=== PATIENT | male | born 1935 | race Hispanic/Latino ===

== ENCOUNTER 2017-09-22 21:30 | Emergency (ER) | payer MEDICARE ==
[~2017-09-22] VITALS: Ht 165.1 cm; Wt 61.2 kg
[~2017-09-22 21:30] MED LIST: AMLODIPINE BESY10 MG PO; LISINOPRIL; LISINOPRIL20 MG PO; METRONIDAZOLE500 MG PO; SUCRALFATE1 GM PO; WARFARIN SODIUM2 MG PO; XARELTO15 MG PO; Z.0.BENTYL20 MG; Z.0.LOTREL 5-20 MG1 PO; Z.0.PANTOPRAZOLE SO4 PO; Z.0.PHENERGAN25 M1
--- NOTE | 2017-09-22 22:16 | Diagnostic Imaging Report ---
EXAM: CHEST 2 VIEWS, PA and lateral DATE: 09/22/2017 9:43 PM Time stamp on exam: 2201 hours INDICATION: High blood pressure, cough COMPARISON: None FINDINGS: LINES/TUBES: None LUNGS: No consolidations or edema. PLEURA: No effusions or pneumothorax. HEART AND MEDIASTINUM: Normal size and contour. BONES AND SOFT TISSUES: No acute findings. IMPRESSION: No evidence of a consolidative pneumonia. Signed by: Dr. Shamika Perdomo M.D. on 09/22/2017 10:13 PM
[2017-09-22 23:25] VITALS: BP 162/89
== END 2017-09-22 23:30 | disposition home or self-care (01) ==
LOC: ER 21:30
DX: J30.2 Other seasonal allergic rhinitis (principal); I10 Essential (primary) hypertension; J44.9 Chronic obstructive pulmonary disease, unspecified; Z85.46 Personal history of malignant neoplasm of prostate
CPT/HCPCS: 71020; 87400; 99283

== ENCOUNTER 2018-02-15 14:14 | Emergency (ER) | payer MEDICARE ==
[~2018-02-15] VITALS: Ht 165.1 cm; Wt 61.2 kg
--- OUTSIDE RECORDS SUMMARY | 2018-02-15 14:18 | XMS REPORT ---
[facility] Address Unknown Phone Unavailable Care Team Providers Care Collections Agent Name Role Phone SOLEDAD BHATT Unavailable Unavailable Problems This patient has no known problems. Allergies, Adverse Reactions, Alerts This patient has no known allergies or adverse reactions. Medications This patient has no known medications. Results Test Description Test Time Test Comments Text Results Atomic Results Result Comments CHEST 2 VIEWS [place] [address] Patient Name: NARGIS ARGUELLES MR #: [id number] : 1935 Age/Sex: 81/M Req # : [id number] Adm Physician: Ordered by: SOLEDAD BHATT MD Report # : [id number] Location: ER Room/Bed: Procedure: [id number] DX/CHEST 2 VIEWS Exam Date: 09/22/17 Exam Time : 2156 REPORT STATUS: Signed EXAM: CHEST 2 VIEWS, PA and lateral DATE : 09/22/2017 9:43 PM Time stamp on exam: 2201 hours INDICATION: High blood pressure, cough COMPARISON: None FINDINGS: LINES/TUBES: None LUNGS : No consolidations or edema. PLEURA: No effusions or pneumothorax. HEART AND MEDIASTINUM: Normal size and contour. BONES AND SOFT TISSUES: No acute findings. IMPRESSION: No evidence of a consolidative pneumonia. Signed by: Dr. Jakub Lassiter M.D. on 09/22/2017 10:13 PM Dictated By: JAKUB LASSITER MD 12 COPY TO: SOLEDAD BHATT MD
[2018-02-15] MEDS ORDERED: METHYLPREDNISOLONE SOD SUCC 125 MG/2ML VIAL IM ONE (14:45)
== END 2018-02-15 14:46 | disposition home or self-care (01) ==
LOC: FSED 14:14
DX: B02.9 Zoster without complications (principal)
CPT/HCPCS: 99283; J2930

== ENCOUNTER 2018-07-05 11:17 | Emergency (ER) | payer MEDICARE ==
[~2018-07-05] VITALS: Ht 165.1 cm; Wt 61.2 kg
[2018-07-05] MEDS ORDERED: DEXAMETHASONE SOD PHOS 10 MG/1 ML VIAL INJ ONE (12:00)
[2018-07-05] MEDS ORDERED: ALBUTEROL/IPRATROPIUM 3 ML NEB NEB ONE (12:00)
--- NOTE | 2018-07-05 12:30 | Diagnostic Imaging Report ---
EXAMINATION: PA and lateral views of the chest. COMPARISON: Chest 2 views 09/22/2017 CLINICAL HISTORY: Wheezing, cough for one day DISCUSSION: Lines/tubes: None. Lungs: The lungs are well inflated and clear. There is no evidence of pneumonia or pulmonary edema. Pleura: There is no pleural effusion or pneumothorax. Heart and mediastinum: Cardiomediastinal silhouette is unremarkable. Pulmonary vasculature is normal. Bones and soft tissues: No acute bony abnormalities. Degenerative changes in the thoracic spine IMPRESSION: No acute cardiopulmonary abnormalities. Signed by: Dr. Edwin Bello M.D. on 07/05/2018 12:26 PM
== END 2018-07-05 13:03 | disposition home or self-care (01) ==
LOC: FSED 11:17
DX: R06.00 Dyspnea, unspecified (principal); R05 Cough; J20.9 Acute bronchitis, unspecified; I10 Essential (primary) hypertension; E78.00 Pure hypercholesterolemia, unspecified
CPT/HCPCS: 71046; 99284; J1100

== ENCOUNTER → 2018-09-20 | Day surgery (SDC) | payer MEDICARE ==
[2018-09-17 15:23] LABS: BASOPHILS % 0.5 % (0.0-1.0); EOSINOPHILS # (AUTO) 0.1 (0.0-0.4); EOSINOPHILS % 1.4 % (0.0-6.0); HEMATOCRIT 39.5 % (38.2-49.6); LYMPHOCYTES # (AUTO) 1.1 (1.0-3.2); LYMPHOCYTES % 16.3 % (18.0-39.1); MEAN CORPUSCULAR HEMOGLOBIN 29.9 pg (28-32); MEAN CORPUSCULAR HGB CONC 32.9 g/dL (31-35); MEAN CORPUSCULAR VOLUME 90.8 fL (81-99); MONOCYTES # (AUTO) 0.6 (0.2-0.8); MONOCYTES % 8.9 % (4.4-11.3); NEUTROPHILS # (AUTO) 4.8 (2.1-6.9); NEUTROPHILS % 71.8 % (38.7-80.0); PLATELET COUNT 187 x10e3/uL (140-360); RED BLOOD COUNT 4.35 x10e6/uL (4.3-5.7); RED CELL DISTRIBUTION WIDTH 12.5 % (11.7-14.4)
[~2018-09-20] MED LIST changes: +ADVAIR 250-501 EACH INH; +AMOXICILLIN250 MG PO; +ASPIR 8181 MG; +GABAPENTIN300 MG PO; +LASIX20 MG PO; +LIDOCAINE HCL 2% LOCAL INJ 5 ML SDV VIAL INJ ONE; +LOSARTAN POTAS100 MG PO; +MONTELUKAST SOD10 MG PO; +PROAIR HFA INH8.5 GM INH; +PROPOFOL IV EMULSION 10 MG/ML 50 ML VIAL ONE; +TERAZOSIN HCL1 MG PO
--- NOTE | 2018-09-20 15:15 | Operative Report ---
DATE OF PROCEDURE: September 20, 2018 REFERRING PHYSICIAN: Dr. Daija Otto. PROCEDURE PERFORMED: Esophagogastroduodenoscopy with esophageal dilatation and biopsies. INDICATION FOR EGD: Dysphagia to solids, bloating. MEDICATIONS: Patient was done under MAC. Please see anesthesiologist's note. PROCEDURE: With the patient in left lateral decubitus position, the flexible fiberoptic Olympus gastroscope was introduced into the esophagus under direct visualization without any difficulty. There was some patchy erythema noted in the distal esophagus. The esophagus was then dilated to size 52-[place] Wilson. The scope was then advanced with ease into the stomach and mucosa overlying the antrum and the body revealed some patchy intense erythema and low-grade to moderate edema and biopsies were obtained and sent to stain for H. pylori. Pylorus appeared to be of normal contour and shape, was intubated with ease, and the scope was advanced all the way to the second portion of the duodenum. The scope was then withdrawn slowly and mucosa overlying the proximal second portion and the duodenal bulb appeared to be within normal limits. The scope was then withdrawn back into the stomach and retroflexed, mucosa overlying the fundus and the cardia appeared to be within normal limits. The scope was then straightened out and was subsequently withdrawn. Patient tolerated the procedure well. IMPRESSION 1. Distal esophagitis, mild. 2. Esophagus dilated to size 52-[place] Wilson. 3. Gastritis, biopsied, biopsies sent to stain for Helicobacter pylori. PLAN: Follow up histology. Continue Protonix 40 mg one p.o. a.c. b.i.d.. Add Carafate 1 gram p.o. a.c. t.i.d. and q.h.s. Job#: [id number] PUN cc:DAIJA OTTO MD
== END | disposition home or self-care (01) ==
LOC: OR 08:26
PROVIDERS: ATTEND Internal Medicine Gastroenterology
DX: K21.0 Gastro-esophageal reflux disease with esophagitis (principal); K29.50 Unspecified chronic gastritis without bleeding; R13.10 Dysphagia, unspecified; I10 Essential (primary) hypertension; Z85.46 Personal history of malignant neoplasm of prostate; R19.7 Diarrhea, unspecified; Z88.5 Allergy status to narcotic agent; Z88.0 Allergy status to penicillin; K22.2 Esophageal obstruction; Z01.810 Encounter for preprocedural cardiovascular examination; Z01.812 Encounter for preprocedural laboratory examination
CPT/HCPCS: 36415; 43239; 43450; 85025; 88305; 88312; 93005; J2001

== ENCOUNTER 2018-09-21 13:54 | Inpatient (IN) | payer MEDICARE ==
[2018-09-21] VITALS (11 sets, daily range): BP systolic 82–112; BP diastolic 45–79
[~2018-09-21] VITALS: Ht 165.1 cm; Wt 67.6 kg
[~2018-09-21 13:54] MED LIST changes: -AMOXICILLIN250 MG PO; -LIDOCAINE HCL 2% LOCAL INJ 5 ML SDV VIAL INJ ONE; -PROPOFOL IV EMULSION 10 MG/ML 50 ML VIAL ONE
[2018-09-21] MEDS ORDERED: CEFEPIME 2 GM/NS 0.9% 100 ML 100 ML IV NR (14:31)
[2018-09-21] MEDS ORDERED: SODIUM CHLORIDE 0.9% 1000ML 1,000 ML IV STA (14:31)
[2018-09-21] MEDS ORDERED: METRONIDAZOLE 500MG/NS 100ML 100 ML IV ONE (14:45)
[2018-09-21] MEDS ORDERED: DIATRIZOATE MEGL/DIATRIZOA SOD 30 ML BTL PO ONE (15:00)
[2018-09-21 15:17] LABS: BASOPHILS % 0.2 % (0.0-1.0); HEMATOCRIT 37.7 % (38.2-49.6); HEMOGLOBIN 12.9 g/dL (14.0-18.0); LYMPHOCYTES # (AUTO) 0.6 (1.0-3.2); MEAN CORPUSCULAR HEMOGLOBIN 30.3 pg (28-32); MEAN CORPUSCULAR HGB CONC 34.2 g/dL (31-35); MEAN CORPUSCULAR VOLUME 88.5 fL (81-99); MONOCYTES # (AUTO) 1.5 (0.2-0.8); MONOCYTES % 7.8 % (4.4-11.3); NEUTROPHILS # (AUTO) 16.8 (2.1-6.9); NEUTROPHILS % 88.1 % (38.7-80.0); PLATELET COUNT 186 x10e3/uL (140-360); RED BLOOD COUNT 4.26 x10e6/uL (4.3-5.7); RED CELL DISTRIBUTION WIDTH 12.7 % (11.7-14.4)
[2018-09-21 15:29] LABS: INR 1.18
[2018-09-21 15:30] LABS: PARTIAL THROMBOPLASTIN TIME 34.3 seconds (23.8-35.5)
[2018-09-21 15:43] LABS: ALBUMIN 3.2 g/dL (3.5-5.0); ANION GAP 14.4 mmol/L (8-16); CALCIUM 8.7 mg/dL (8.4-10.2); CREATININE, SERUM 1.74 mg/dL (0.72-1.25); MAGNESIUM 1.6 MG/DL (1.3-2.1); POTASSIUM 3.4 mmol/L (3.5-5.1)
[2018-09-21 15:50] LABS: CREATINE KINASE MB 0.5 ng/mL (0-5.0)
[2018-09-21 15:57] LABS: B-TYPE NATRIURETIC PEPTIDE2 157.3 pg/mL (0-100)
[2018-09-21 16:18] LABS: CLARITY,URINE CLEAR (CLEAR); COLOR,URINE YELLOW (YELLOW); KETONES,URINE NEGATIVE (NEGATIVE); LEUKOCYTE ESTERASE ,URINE NEGATIVE (NEGATIVE); NITRITE,URINE NEGATIVE (NEGATIVE); PROTEIN,URINE DIPSTICK NEGATIVE (NEGATIVE); URINE UROBILINOGEN 0.2 mg/dL (0.2 - 1)
[2018-09-21 16:19] LABS: BILIRUBIN,URINE NEGATIVE (NEGATIVE)
--- NOTE | 2018-09-21 16:31 | Diagnostic Imaging Report ---
Examination: Single AP view of the chest. COMPARISON: Chest 2 views 09/22/2017 INDICATION: Fever, status post EGD dilation IMPRESSION: 1. Lines and Tubes: None 2. Lungs are grossly clear. No consolidation or effusion. 3. Cardiomediastinal silhouette is normal. Pulmonary vasculature is normal. 4. No acute bony abnormalities. Signed by: Dr. Edwin Bello M.D. on 09/21/2018 4:27 PM
[2018-09-21 16:35] LABS: BACTERIA,URINE RARE /HPF; EPITHELIAL CELLS,URINE RARE /LPF; RBC,URINE 0-5 /HPF (0-5); WBC,URINE (MAN) 0-5 /HPF (0-5)
--- NOTE | 2018-09-21 16:40 | Diagnostic Imaging Report ---
EXAMINATION: CT of the abdomen and pelvis without contrast. TECHNIQUE: Spiral CT images of the abdomen and pelvis were performed from the lung bases to the lesser trochanters. No intravenous contrast was given per physician's request. Oral Gastrografin was given. Coronal and sagittal reformatted images were obtained. COMPARISON: None. CLINICAL HISTORY:EGD one day ago, fever today, abdominal bloating DISCUSSION: ABSENCE OF INTRAVENOUS CONTRAST DECREASES SENSITIVITY FOR DETECTION OF FOCAL LESIONS AND VASCULAR PATHOLOGY. ABDOMEN/PELVIS: LOWER THORAX: Unremarkable. No pneumomediastinum in the visualized portions of the lung bases HEPATOBILIARY: Normal hepatic size and contour. Mild steatosis predominantly involving the right lobe. No focal lesions. No intrahepatic biliary ductal dilation. Mild dilation of the common bile duct, which measures approximately 8 mm at the ivonne hepatis. GALLBLADDER: Cholecystectomy clips. SPLEEN: No splenomegaly. PANCREAS: No focal masses or ductal dilatation. ADRENALS: No adrenal nodules. KIDNEYS/URETERS: No hydronephrosis, stones, or contour abnormalities. Malrotation of the right kidney. PELVIC ORGANS/BLADDER: Bladder is mostly decompressed but grossly unremarkable. Metallic clips are noted inferior and posterior to the bladder. PERITONEUM/RETROPERITONEUM: No free air or fluid. LYMPH NODES: No intra-abdominal,retroperitoneal, pelvic or inguinal lymphadenopathy. VESSELS: Atherosclerotic calcification of the abdominal aorta and proximal iliac vessels. GI TRACT: Contrast is noted predominantly in the jejunum and ileum. No bowel dilation or evidence of obstruction. No pericolonic inflammatory changes. High riding cecum. BONES AND SOFT TISSUES: No aggressive lytic lesions. Mild degenerative disc changes in the lower thoracic and lumbosacral spine. Soft tissues are grossly unremarkable. IMPRESSION: 1. No acute abdominopelvic abnormalities. No evidence of pneumomediastinum in the visualized portions of the lung bases. No pneumoperitoneum. No evidence of bowel perforation. 2. Mild hepatic steatosis predominantly involving the right hepatic lobe. 3. Mild dilation of the common bile duct, likely reflecting post cholecystectomy status. Signed by: Dr. Edwin Bello M.D. on 09/21/2018 4:36 PM
[2018-09-21 17:25] LABS: AMYLASE 58 U/L (25-125); LIPASE 11 U/L (8-78)
[2018-09-21] MEDS ORDERED: ALBUTEROL SULF 0.083% NEB SOLN 3 ML NEB NEB NR (18:00)
[2018-09-21] MEDS ORDERED: IPRATROPIUM BROMIDE 0.02% 2.5 ML NEB NEB NR (18:00)
[2018-09-21] MEDS: CLINDAMYCIN PHOS 900MG/ 50ML 50 ML IV SCH ×2 (18:18→22:00)
[2018-09-21] MEDS: ACETAMINOPHEN 1000 MG/100 ML IV PRN (18:19)
[2018-09-21] MEDS ORDERED: ONDANSETRON HCL INJ 2MG/ML 2ML 2 MG/ML VIAL IV PRN (18:30)
[2018-09-21] MEDS ORDERED: KCL 20MEQ/.9 SOD CHL 1,000 ML IV ONE ×2 (18:30→22:18)
[2018-09-21] MEDS ORDERED: SODIUM CHLORIDE 0.9% 1000ML 1,000 ML IV ONE ×2 (18:43→19:07)
--- NOTE | 2018-09-21 18:43 | NUR ---
NOTIFIED DR MCGRATH BP 81/42. 1L NS BOLUS ORDERED THIS TIME.
[2018-09-21] MEDS ORDERED: SODIUM CHLORIDE 0.9% 1000ML 1,000 ML ONE ×2 (18:44→19:08)
--- NOTE | 2018-09-21 18:55 | NUR ---
VERBAL REPORT GIVEN TO QUEENIE GURROLA.
--- NOTE | 2018-09-21 19:07 | NUR ---
NOTIFIED DR MCGRATH BP 84/49 AFTER 1L NS BOLUS. 1L NS BOLUS ORDERED AT THIS TIME.
--- NOTE | 2018-09-21 19:10 | NUR ---
RECEIVED REPORT FROM QUEENIE GONZALEZ
--- NOTE | 2018-09-21 19:22 | NUR ---
PICC NURSE AT BEDSIDE
[2018-09-21] MEDS ORDERED: VANCOMYCIN 1GM/NS 250 ML 250 ML IV ONE (19:30)
[2018-09-21] MEDS ORDERED: NOREPINEPHRINE INJ 4MG/4ML 8 MG in DEXTROSE 5% 250ML 250 ML IV PRN (19:30)
--- NOTE | 2018-09-21 19:35 | NUR ---
RADIOLOGY AT BEDSIDE FOR CXR LINE PLACEMENT
--- NOTE | 2018-09-21 19:37 | NUR ---
60CC CLEAR YELLOW RETURN FROM [facility], 3RD 1L NS BOLUS INFUSED. PT AWAKE ALERT SKIN W/D RESP NONLAB. NAD NOTED.
--- NOTE | 2018-09-21 20:02 | Diagnostic Imaging Report ---
CHEST XRAY LINE PLACEMENT, 09/21/2018 7:16 PM Technique: CHEST XRAY LINE PLACEMENT Comparison: 09/21/2018 Clinical history: PICC line placement Findings: See Impression Impression: 1. Lines/Tubes: Right PICC seen over the proximal SVC, tip obscured by motion and confluence of shadow. 2. Mildly enlarged cardiac silhouette, accentuated by technique. Atherosclerotic calcifications. 3. Mild infrahilar vascular crowding. No effusion or pneumothorax. Signed by: Dr Do Costa MD on 09/21/2018 7:58 PM
--- NOTE | 2018-09-21 20:05 | Diagnostic Imaging Report ---
CHEST XRAY LINE PLACEMENT, 09/21/2018 7:49 PM Technique: CHEST XRAY LINE PLACEMENT Comparison: 09/21/2018 Clinical history: Findings: See Impression Impression: 1. Lines/Tubes: Right PICC tip within the expected proximal SVC. 2. Prominent cardiac silhouette, accentuated by lordotic portable technique. Atherosclerotic calcifications. 3. Linear left midlung atelectasis. No consolidations or edema. No effusion or pneumothorax. Signed by: Dr Do Costa MD on 09/21/2018 8:02 PM
[2018-09-21] MEDS: CEFEPIME 2 GM/NS 0.9% 100 ML 100 ML IV SCH (22:18)
[2018-09-22] VITALS (26 sets, daily range): BP systolic 84–139; BP diastolic 54–87
--- NOTE | 2018-09-22 00:28 | NUR ---
CALLED DR Fabian REY TO INFORM HIM THAT THIS PATIENT HAS SEVERAL LARGE LIQUID STOOLS. C-DIFF SENT OFF. ORDER FOR FECAL MANAGEMENT SYSTEM, AND ORDER FOR LOMOTIL X1 DOSE. VERB AND CONFIRMED
[2018-09-22] MEDS: ALBUTEROL SULF 0.083% NEB SOLN 3 ML NEB NEB PRN ×5 (01:45→23:12)
[2018-09-22] MEDS: IPRATROPIUM BROMIDE 0.02% 2.5 ML NEB NEB PRN ×5 (01:45→23:12)
[2018-09-22] MEDS ORDERED: DIPHENOXYLATE/ATROPINE TAB PO ONE (03:00)
[2018-09-22 03:15] LABS: BASOPHILS % 0.1 % (0.0-1.0); HEMATOCRIT 31.3 % (38.2-49.6); HEMOGLOBIN 10.3 g/dL (14.0-18.0); LYMPHOCYTES % 6.4 % (18.0-39.1); MEAN CORPUSCULAR HEMOGLOBIN 29.3 pg (28-32); MEAN CORPUSCULAR HGB CONC 32.9 g/dL (31-35); MEAN CORPUSCULAR VOLUME 89.2 fL (81-99); MONOCYTES # (AUTO) 1.2 (0.2-0.8); MONOCYTES % 8.2 % (4.4-11.3); NEUTROPHILS # (AUTO) 12.5 (2.1-6.9); NEUTROPHILS % 84.4 % (38.7-80.0); PLATELET COUNT 114 x10e3/uL (140-360); RED BLOOD COUNT 3.51 x10e6/uL (4.3-5.7); RED CELL DISTRIBUTION WIDTH 12.9 % (11.7-14.4)
[2018-09-22 03:36] LABS: CREATINE KINASE MB 2.5 ng/mL (0-5.0)
[2018-09-22 03:43] LABS: ANION GAP 12.5 mmol/L (8-16); CALCIUM 7.3 mg/dL (8.4-10.2); CREATININE, SERUM 1.52 mg/dL (0.72-1.25); POTASSIUM 3.5 mmol/L (3.5-5.1)
[2018-09-22] MEDS: CLINDAMYCIN PHOS 900MG/ 50ML 50 ML IV SCH ×4 (05:04→22:59)
--- NOTE | 2018-09-22 07:00 | NUR ---
RECVD BEDSIDE REPORT. ASSESSMENT COMPLETED AND RECORDED. VSS AND RECORDED. DENIES PAIN. REVIEWED IN [facility] POC WITH PT AND THEY VERBALIZE UNDERSTANDING AND CONSENT.
--- NOTE | 2018-09-22 07:33 | NUR ---
CALLED DR Alla REY TO UPDATE ON STATUS AND REQUEST SOMETHING FOR COUGH. ORDERS RECVD AND BEING COMPLETED.
[2018-09-22] MEDS: CEFEPIME 2 GM/NS 0.9% 100 ML 100 ML IV SCH ×2 (08:20→22:00)
[2018-09-22 11:44] LABS: CREATINE KINASE MB 2.1 ng/mL (0-5.0)
--- NOTE | 2018-09-22 12:42 | NUR ---
Nutrition Intervention Note RD Recommendation(s) for Physician: - If pt is negative for C. Diff consider probiotics BID 2/2 diarrhea - Recommend Ensure Compact TID Plan of Care: RD following, monitoring for tolerance and adequacy Nutrition reason for involvement: RN Consult RD Assessment 09/22: 82 YOM admitted to ICU for renal insufficiency and fever with diarrhea and pending C. diff culture. Pt seen today per RN consult- no reason specified. Pt is Danish speaking only, pt's at bedside able to provide limited hx. Pt's reports poor po intake recently. Pt wt stable per prior admit in February. Pt continues with diarrhea per am rounds. Chart reviewed. Pt now off Levophed. Will continue to monitor. Principal Problems/Diagnoses: Renal insufficiency, fever, strep pharyngitis PMH: dysphagia, PUD, melena- limited PMH per previous admits, no H&P this admit GI: LBM 09/22- diarrhea Skin: intact Labs: Na 138, K 3.5, BUN 24, Cr 1.52, POC Gluc 191-196 Meds: abx, zofran Ht: 65 in Wt: 146 lb BMI: 24.4 IBW: 136 lb Malnutrition Evaluation (09/22/18) The patient does not meet criteria for a specified degree of malnutrition at this time. Will re-evaluate at follow-up as appropriate. Energy intake: <75% of estimated energy requirements for >7 days Weight loss: Wt stable > 6 months per admit wt of 165# 6/ Fat loss: None Muscle loss: None Supporting Evidence: Fluid accumulation: None Functional Status: unable to evaluate Nutrition Prescription (Diet Order): Cardiac Estimated Nutritional Needs: 7700-6647 calories/day (22-28 kcal/kg CBW) 66-100 g protein/day (1-1.5 g pro/kg CBW) Diet Adequacy: Not meeting calorie needs, Not meeting protein needs Diet Education Needs Assessment: Diet education not indicated. Nutrition Care Level: Low Nutrition Diagnosis: Inadequate energy and protein intake related to poor appetite and diarrhea as evidenced by not meeting needs. Goal: Patient will meet 75-100% of estimated needs by follow up Progress: N/A Interventions: Fat, mineral modified diet, Commercial beverage, Prescription medications, Collaboration with other providers Monitoring/Evaluation: Total energy intake, Total protein intake, Modified diet, Commercial beverage Signed: Zunilda Leung RD, LD, [facility]
[2018-09-22] MEDS: ACETAMINOPHEN 1000 MG/100 ML IV PRN (15:08)
--- NOTE | 2018-09-22 16:33 | NUR ---
DR REY MAKING ROUNDS, UPDATED ON PT STATUS. NO NEW ORDERS RECVD.
--- NOTE | 2018-09-22 17:00 | NUR ---
CASE MANAGEMENT INITIAL ASSESSMENT Division Operations Specialist to bedside to discuss plan of care with patient/family. CM/SW role and care transitions discussed. Anticipated discharge plan discussed along with duration of care. CM/SW discussed patients right to make decisions in care. CM/SW work hours given. Patient lives: WITH AND DTR SHANNAN Admit/Transfer: ER POA/Emergency contact: DAUGHTER SHANNAN ARGUELLES [phone] Current/Previous Home Health: NONE PCP/Follow-up Care: DR DAIJA ALEXANDRE Current/Previous DME: [employer]ER Other Services: NONE Employment Status: RETIRED Areas of Concerns: NONE Referral Needs: NONE Education Needs: NONE IMM/BLANCAS given and signed (if applicable): IMM ON ADMIT Goal for discharge:RETURN HOME AND BE INDEPENDENT CM/SW left business card at the bedside with contact information. Name and number was also written on the patients whiteboard. Patient verbalized understanding of discussion. CM will follow-up with ongoing discharge and transition of care needs.
--- NOTE | 2018-09-22 20:30 | NUR ---
PATIENT TRANSPORTED TO RADIOLOGY VIA W/C WITH MONITOR
--- NOTE | 2018-09-22 20:30 | NUR ---
PATIENTs COMPLAINING OF PAIN IN MID ABDOMEN RADIATING TO THE RUQ, PATIENT ABDOMEN STILL GROSSLY DIST ENDED. PREVIOUS SHIFT HE HAD 3 COPIOUS AMTS OF WATERY STOOL AND 1 A PASTY STOOL. CALLED DR Candy REY NEW ORDER TO GET A 2 VIEW ABDOMEN. I ASKED HIM IF I COULD GET AN ORDER FOR A CXR PATIENT HAVING SOB AND CRACKLES WITH WHEEZING HEARD PATIENT ON RA AND SATS AT 98%. CXR 2 VIEW ORDERED.
--- NOTE | 2018-09-22 21:00 | NUR ---
PATIENT STILL HAVING MILD SOB AUDIBLE WHEEZING NOW BEING HEARD. RR 20 O2 SATS 90% PATIENT IS USING ACCESSORY ABD MUSCLES. PLACED O2 NC AT 1L/M AND SATS CAME UP TO 99%. WILL CONTINUE TO MONITOR Addendum: 09/22/18 at 2321 by Ely Oliva RN PATIENT BACK FROM RADIOLOGY AND PLACED BACK IN BED WHEN ASKED STATEMENT ABOVE
--- NOTE | 2018-09-22 21:02 | Diagnostic Imaging Report ---
EXAMINATION: PA and lateral views of the chest. COMPARISON: AP chest 09/21/2018 CLINICAL HISTORY: Fever, dyspnea, renal insufficiency DISCUSSION: Lines/tubes: Stable right-sided PICC line, with distal tip projecting in the proximal to mid SVC. Lungs: Lungs are well-inflated. Stable linear opacity in the left midlung, likely reflecting subsegmental atelectasis or scarring. Mild compressive atelectasis in bilateral lower lungs. Pleura: Blunting of bilateral posterior costophrenic sulci, consistent with small pleural effusions. Heart and mediastinum: Cardiomediastinal silhouette is unremarkable. Pulmonary vasculature is normal. Bones and soft tissues: No acute bony abnormalities. Degenerative changes in the thoracic spine IMPRESSION: Small bilateral pleural effusions with likely compressive atelectasis of bilateral lower lobes. Signed by: Dr. Edwin Bello M.D. on 09/22/2018 8:59 PM
--- NOTE | 2018-09-22 21:05 | Diagnostic Imaging Report ---
Exam: Abdominal film Clinical History: Abdominal distention Comparison: CT abdomen and pelvis without contrast 09/21/2018 DISCUSSION: Frontal view of the abdomen shows a nonobstructive bowel gas pattern with no significant amount of retained stool. A single loop of small bowel is mildly dilated measuring 3.4 cm in the right midabdomen. No other air filled, nondilated loops of bowel. There are no abnormal calcifications. Residual contrast is noted in the large bowel from prior CT abdomen and pelvis. Multiple metallic clips project in the pelvis. IMPRESSION: 1. Single air-filled loop of small bowel shows mild dilation, however, the rest of the bowel is unremarkable, without other air filled dilated loops of bowel. This is likely transient and result of peristalsis rather than a focal ileus. The staff physician below has personally reviewed this exam on the date of dictation. Signed by: Dr. Edwin Bello M.D. on 09/22/2018 9:02 PM
--- NOTE | 2018-09-22 21:10 | NUR ---
RESULTS BACK AND CALL DR Candy REY. ORDER TO GIVE DUCOLAX SUPP X1 IF NO RESULTS AND/OR PAIN LEVEL IS NOT DECREASED TO CALL HIM BACK
[2018-09-22] MEDS ORDERED: BISACODYL 10 MG SUPP PR ONE (22:00)
[2018-09-22] MEDS: GUAIFENESIN/DEXTROMETHORPHAN LIQD 5 ML UDC NG PRN (22:00)
--- NOTE | 2018-09-22 23:00 | NUR ---
PATIENTs O2 SATS AT 99% AND IS O2 AT 1/M BUT AUDIBLE WHEEZING STILL NOTED THAT DOES NOT CLEAR WITH COUGH. PATIENTs STATED "A LITTLE SOB". CALLED AND HAD DR REY PAGED OUT
--- NOTE | 2018-09-22 23:21 | NUR ---
DR Rafita REY RETURNED PAGE. INFORMED HIM C/O SOB, AND WHEEZING IS NOW AUDIBLE AND STILL HAS RHONCHI IN BILATERAL UPPER LOBES AND RIGHT MEDIAL LOBE, BILATERAL LOWER LOBES DIMINISHED. THAT Candy REY GAVE ME ORDER FOR ABD XRAY ORDER WHEN GIVING THE KUB ORDER. RESULTS WERE PLACED. VITAL SIGNS WITH NOW O2 NC AT 1-2L/M. NEW ORDER RECEIVED TO GIVE LASIX 40MG IV NOW X1 DOSE
[2018-09-22] MEDS ORDERED: FUROSEMIDE INJ 10 MG/ML 4 ML VIAL IV ONE (23:30)
[2018-09-23] VITALS (15 sets, daily range): BP systolic 101–146; BP diastolic 65–81
--- NOTE | 2018-09-23 03:00 | NUR ---
PATIENT WAS GIVEN A ONE TIME DOSE OF LASIX 40MG IV AT 2330. PATIENT HAS NO C/O SOB. AUSCULTATION TO LUNG AARON WERE CLEAR. NO WHEEZING, CRACKLES, NOR STRIDOR HEARD. DRASTIC IMPROVEMENT AFTER THE LASIX GIVEN.
[2018-09-23] MEDS: CLINDAMYCIN PHOS 900MG/ 50ML 50 ML IV SCH ×3 (06:32→23:00)
--- NOTE | 2018-09-23 07:00 | NUR ---
RECVD BEDSIDE REPORT. ASSESSMENT COMPLETED AND RECORDED. VSS. DR Fabian REY AT BEDSIDE. NO NEW ORDERS RECVD. PT AND VERBALIZE UNDERSTANDING AND CONSENT TO POC EXPLAINED TO THEM IN [facility].
[2018-09-23] MEDS: IPRATROPIUM BROMIDE 0.02% 2.5 ML NEB NEB PRN ×2 (07:05→20:01)
[2018-09-23] MEDS: ALBUTEROL SULF 0.083% NEB SOLN 3 ML NEB NEB PRN ×2 (07:05→20:01)
[2018-09-23] MEDS: CEFEPIME 2 GM/NS 0.9% 100 ML 100 ML IV SCH ×2 (07:20→20:15)
[2018-09-23] MEDS ORDERED: FUROSEMIDE INJ 10 MG/ML 4 ML VIAL IV ONE (10:45)
[2018-09-23 10:53] LABS: BASOPHILS % 0.3 % (0.0-1.0); EOSINOPHILS % 0.2 % (0.0-6.0); HEMATOCRIT 33.5 % (38.2-49.6); HEMOGLOBIN 11.1 g/dL (14.0-18.0); LYMPHOCYTES # (AUTO) 0.4 (1.0-3.2); LYMPHOCYTES % 3.9 % (18.0-39.1); MEAN CORPUSCULAR HEMOGLOBIN 29.3 pg (28-32); MEAN CORPUSCULAR HGB CONC 33.1 g/dL (31-35); MEAN CORPUSCULAR VOLUME 88.4 fL (81-99); MONOCYTES # (AUTO) 0.7 (0.2-0.8); NEUTROPHILS # (AUTO) 10.1 (2.1-6.9); NEUTROPHILS % 88.9 % (38.7-80.0); PLATELET COUNT 123 x10e3/uL (140-360); RED BLOOD COUNT 3.79 x10e6/uL (4.3-5.7)
--- NOTE | 2018-09-23 11:00 | NUR ---
dr bose making rounds, updated orders are being completed.
[2018-09-23 11:18] LABS: ANION GAP 11.3 mmol/L (8-16); CALCIUM 8.2 mg/dL (8.4-10.2); CREATININE, SERUM 1.44 mg/dL (0.72-1.25); POTASSIUM 3.3 mmol/L (3.5-5.1)
--- NOTE | 2018-09-23 11:19 | Diagnostic Imaging Report ---
Examination: Single AP view of the chest. COMPARISON: 09/22/2018 INDICATION: Shortness of breath DISCUSSION: Tip of right upper extremity PICC projects over the low superior vena cava, unchanged. Lungs remain well-inflated. Small bilateral pleural effusions with linear opacities in the lower lung zones left greater than right, unchanged. No new consolidation. Stable cardiomediastinal contour with tortuosity and atherosclerotic calcification of the thoracic aorta. No overt pulmonary edema. No acute osseous abnormality. IMPRESSION: Stable position of right upper extremity PICC. Small bilateral pleural effusions and subsegmental atelectasis of the lower lung zones, left greater than right, unchanged relative to 09/22/2018. Signed by: Dr. Morgan Goodwin M.D. on 09/23/2018 11:16 AM
--- NOTE | 2018-09-23 12:05 | NUR ---
report called to yohana, transferred pt via wc with family at bedside. tolerates well.
--- NOTE | 2018-09-23 12:30 | NUR ---
PT ARRIVED TO FLOOR VIA STRETCHER, RESP EVEN AND UNLABORED AT THIS TIME, PT ORIENTED TO ROOM AND CALL LIGHT, PT HAS FAMILY MEMBERS AT BEDSIDE, CALL LIGHT IN REACH.
[2018-09-23] MEDS: GUAIFENESIN/DEXTROMETHORPHAN LIQD 5 ML UDC NG PRN (17:19)
[2018-09-23] MEDS ORDERED: SODIUM CHLORIDE 0.9% 250ML 250 ML ONE (17:31)
--- NOTE | 2018-09-23 19:25 | NUR ---
Completed bedside rounds with morning nurse. Pt alert to name, lying in bed 45 degrees. Denies pain at this time. Family at bedside. No distress noted.
--- NOTE | 2018-09-23 19:32 | NUR ---
REPORT GIVEN TO ONCOMING NURSE, FOR CONTINUED CARE.
--- NOTE | 2018-09-23 19:53 | NUR ---
Called RT to admin prn breathing treatments. Pt with dry coughing and SOB. O2 sat 95%. VS stable. elevated HOB 75 degrees.
--- NOTE | 2018-09-23 20:23 | NUR ---
Breathing treatment received. Pt denies SOB. Decreased coughing. Lungs CTA. Lying in bed HOB 60. Denies pain or discomfort. Family at bedside. Call garcía within reach. Will continue to monitor.
[2018-09-24 00:05] VITALS: BP 138/70
[2018-09-24] MEDS ORDERED: PANTOPRAZOLE 40 MG 10ML VIAL IV STA (01:14)
[2018-09-24] MEDS: PANTOPRAZOLE 40 MG 10ML VIAL IV SCH ×2 (01:15→13:58)
[2018-09-24] MEDS: IPRATROPIUM BROMIDE 0.02% 2.5 ML NEB NEB PRN ×3 (01:19→13:25)
[2018-09-24] MEDS: ALBUTEROL SULF 0.083% NEB SOLN 3 ML NEB NEB PRN ×3 (01:19→13:25)
[2018-09-24] MEDS ORDERED: SODIUM CHLORIDE 0.9% 50ML 100 ML ONE (01:33)
[2018-09-24 04:00] VITALS: BP 116/62
[2018-09-24] MEDS: CLINDAMYCIN PHOS 900MG/ 50ML 50 ML IV SCH ×2 (06:12→13:58)
[2018-09-24 07:58] VITALS: BP 138/67
[2018-09-24 08:14] VITALS: BP 138/67
[2018-09-24] MEDS: GUAIFENESIN/DEXTROMETHORPHAN LIQD 5 ML UDC NG PRN ×2 (08:14→13:58)
[2018-09-24] MEDS: CEFEPIME 2 GM/NS 0.9% 100 ML 100 ML IV SCH (08:14)
[2018-09-24 11:37] VITALS: BP 108/60
--- NOTE | 2018-09-24 14:08 | NUR ---
PATIENT TRANSFERRED FROM ICU. DR. Fabian REY HAS SEEN PATIENT BUT NO ORDERS PLACED FOR INTERVENTIONS FOR ABDOMINAL PAIN. PATIENT CULTURES NEGATIVE, PATIENT ON CARDIAC DIET AND TOLERATING. DR. Alla REY TO REVIEW AND DETERMINE DISCHARGE PLAN.
[2018-09-24] MEDS ORDERED: AMOXICILLIN250 MG PO (15:43)
--- NOTE | 2018-09-24 16:16 | NUR ---
Paged Dr. Alla Kamara at this time. patient has allergy to penicillin. Amoxicillin written for discharge. Awaiting call back.
[2018-09-24 16:17] VITALS: BP 114/61
--- NOTE | 2018-09-24 17:10 | NUR ---
Paged Dr. bose again. Spoke directly to Dr. Bose at this time. Gave me his cell phone number to text patient information. Stated he will call in another prescription to patient's pharmacy. patient can still be discharged.
== END 2018-09-24 18:54 | disposition home or self-care (01) | DRG 153 ==
LOC: ER 13:54 → OBSVTOIN 18:36 → ERHOLD 18:36 → ICU 19:54 → MED/SURG2 09-23 15:10
PROC: 02HV33Z Insertion of Infusion Device into Superior Vena Cava, Percutaneous Approach (ICD-10-PCS; principal; 2018-09-21)
DX: J02.0 Streptococcal pharyngitis (principal); I10 Essential (primary) hypertension; E78.5 Hyperlipidemia, unspecified; J44.9 Chronic obstructive pulmonary disease, unspecified; I11.0 Hypertensive heart disease with heart failure; I50.9 Heart failure, unspecified
CPT/HCPCS: 36415; 36569; 51700; 71045; 71046; 74018; 74176; 80048; 80053; 81001; 82150; 82550; 82553; 82948; 83518; 83605; 83690; 83735; 83880; 84484; 85025; 85610; 85730; 87040; 87086; 87400; 87493; 93005; 94640; 99284; J1940; J2405; J3370; J7030; J7050

== ENCOUNTER 2020-08-04 10:00 | Emergency (ER) | payer MEDICARE ==
[~2020-08-04] VITALS: Ht 165.1 cm; Wt 66.5 kg
[~2020-08-04 10:00] MED LIST changes: +AMOXICILLIN250 MG PO
[2020-08-04] MEDS ORDERED: PROTONIX20 MG PO (10:21)
[2020-08-04] MEDS ORDERED: SUCRALFATE1 GM PO (10:21)
[2020-08-04] MEDS ORDERED: AMLODIPINE BESYL5 MG PO (10:21)
[2020-08-04] MEDS ORDERED: VITAMIN D3250 MC1 (10:21)
[2020-08-04 11:59] VITALS: BP 154/79
== END 2020-08-04 12:12 | disposition home or self-care (01) ==
LOC: FSED 10:10
DX: J40 Bronchitis, not specified as acute or chronic (principal); R06.02 Shortness of breath; I10 Essential (primary) hypertension; J44.9 Chronic obstructive pulmonary disease, unspecified; K21.9 Gastro-esophageal reflux disease without esophagitis; Z85.46 Personal history of malignant neoplasm of prostate; Z86.718 Personal history of other venous thrombosis and embolism
CPT/HCPCS: 71046; 80053; 82553; 83880; 84484; 85025; 93005; 99284

== ENCOUNTER 2021-09-12 21:26 | Emergency (ER) | payer MEDICARE ==
[~2021-09-12] VITALS: Ht 165.1 cm; Wt 66.2 kg
[~2021-09-12 21:26] MED LIST changes: +AMLODIPINE BESYL5 MG PO; +PROTONIX20 MG PO; +VITAMIN D3250 MC1
[2021-09-12] MEDS ORDERED: DEXAMETHASONE SOD PHOS 10 MG/1 ML VIAL IM STA (21:52)
[2021-09-12] MEDS ORDERED: AZITHROMYCIN 250 MG TAB PO STA (21:52)
[2021-09-12] MEDS ORDERED: DEXAMETHASONE SOD PHOS 10 MG/1 ML VIAL ONE (22:07)
[2021-09-12] MEDS ORDERED: AZITHROMYCIN 250 MG TAB ONE (22:07)
[2021-09-12] MEDS ORDERED: VENTOLIN HFA18 GM INH (23:54)
[2021-09-12] MEDS ORDERED: AZITHROMYCIN250 MG PO (23:54)
[2021-09-12] MEDS ORDERED: PREDNISONE20 MG PO (23:54)
[2021-09-13 01:17] VITALS: BP 141/76
== END 2021-09-12 23:58 | disposition home or self-care (01) ==
LOC: ER 21:34
DX: U07.1 COVID-19 (principal); J44.9 Chronic obstructive pulmonary disease, unspecified; I11.0 Hypertensive heart disease with heart failure; I50.9 Heart failure, unspecified; Z88.6 Allergy status to analgesic agent; Z88.0 Allergy status to penicillin; Z79.899 Other long term (current) drug therapy; Z86.711 Personal history of pulmonary embolism; Z86.718 Personal history of other venous thrombosis and embolism
CPT/HCPCS: 71045; J1100; U0002

== ENCOUNTER 2021-09-15 09:34 | Emergency (ER) | payer MEDICARE ==
[~2021-09-15] VITALS: Ht 165.1 cm; Wt 66.2 kg
[~2021-09-15 09:34] MED LIST changes: +AZITHROMYCIN250 MG PO; +PREDNISONE20 MG PO; +VENTOLIN HFA18 GM INH
== END 2021-09-15 10:02 | disposition home or self-care (01) ==
LOC: ER 09:55
DX: U07.1 COVID-19 (principal); R05.9 Cough, unspecified; I10 Essential (primary) hypertension; J44.9 Chronic obstructive pulmonary disease, unspecified; I50.9 Heart failure, unspecified; K21.9 Gastro-esophageal reflux disease without esophagitis; J45.909 Unspecified asthma, uncomplicated; Z86.718 Personal history of other venous thrombosis and embolism
CPT/HCPCS: 99282

== ENCOUNTER 2021-09-17 12:33 | Inpatient (IN) | payer MEDICARE ==
[~2021-09-17] VITALS: Ht 165.1 cm; Wt 66.4 kg
[2021-09-17] MEDS ORDERED: DEXAMETHASONE SOD PHOS 10 MG/1 ML VIAL IV ONE (13:30)
[2021-09-17] MEDS ORDERED: DEXAMETHASONE SOD PHOS INJ 4 MG/ML SDV ONE (14:04)
[2021-09-17] MEDS ORDERED: CEFTRIAXONE 1 GM in SODIUM CHLORIDE 0.9% 50ML 50 ML IV ONE (15:15)
[2021-09-17] MEDS ORDERED: SODIUM CHLORIDE 0.9% 250ML 250 ML ONE (15:41)
[2021-09-17] MEDS ORDERED: CEFTRIAXONE 1 GM VIAL ONE (15:41)
[2021-09-17] MEDS: SODIUM CHLORIDE 0.9% 1000ML 1,000 ML IV SCH (16:15)
[2021-09-17 19:00] VITALS: BP 145/76
[2021-09-17] MEDS ORDERED: HYDRALAZINE HCL 20 MG/ML VIAL IV PRN (19:30)
[2021-09-17] MEDS ORDERED: ALBUTEROL SULFATE HFA 8GM INHALATION AEROSOL INH PRN (19:30)
[2021-09-17] MEDS ORDERED: ONDANSETRON HCL INJ 2MG/ML 2ML 2 MG/ML VIAL IV PRN (19:30)
[2021-09-17] MEDS ORDERED: ACETAMINOPHEN 325 MG TAB PO PRN (19:30)
[2021-09-17 20:00] VITALS: BP 145/76
[2021-09-17] MEDS: GABAPENTIN 300 MG CAP PO SCH (20:56)
[2021-09-17] MEDS: TERAZOSIN HCL 1 MG CAP PO SCH (21:22)
[2021-09-17] MEDS: GUAIFENESIN/DEXTROMETHORPHAN LIQD 5 ML UDC NG PRN (23:00)
[2021-09-18] VITALS (8 sets, daily range): BP systolic 138–171; BP diastolic 55–82
[2021-09-18] MEDS: GUAIFENESIN/DEXTROMETHORPHAN LIQD 5 ML UDC NG PRN ×2 (04:21→22:18)
[2021-09-18 07:21] LABS: BASOPHILS % 0.1 % (0.0-1.0); HEMATOCRIT 36.7 % (38.2-49.6); HEMOGLOBIN 11.8 g/dL (14.0-18.0); LYMPHOCYTES # (AUTO) 0.4 (1.0-3.2); LYMPHOCYTES % 4.5 % (18.0-39.1); MEAN CORPUSCULAR HEMOGLOBIN 28.6 pg (28-32); MEAN CORPUSCULAR HGB CONC 32.2 g/dL (31-35); MEAN CORPUSCULAR VOLUME 89.1 fL (81-99); MONOCYTES # (AUTO) 0.6 (0.2-0.8); MONOCYTES % 7.7 % (4.4-11.3); NEUTROPHILS # (AUTO) 7.1 (2.1-6.9); NEUTROPHILS % 86.4 % (38.7-80.0); PLATELET COUNT 144 x10e3/uL (140-360); RED BLOOD COUNT 4.12 x10e6/uL (4.3-5.7); RED CELL DISTRIBUTION WIDTH 12.8 % (11.7-14.4)
[2021-09-18] MEDS ORDERED: FAMOTIDINE 20 MG TAB PO SCH (07:30)
[2021-09-18 07:44] LABS: CREATININE, SERUM 1.23 mg/dL (0.72-1.25)
[2021-09-18 07:50] LABS: CALCIUM 8.1 mg/dL (8.4-10.2)
[2021-09-18] MEDS: ALBUTEROL SULFATE HFA 8GM INHALATION AEROSOL INH SCH ×3 (08:33→20:12)
[2021-09-18] MEDS: DEXAMETHASONE SOD PHOS 10 MG/1 ML VIAL IV SCH (08:36)
[2021-09-18] MEDS: CHOLECALCIFEROL 1,000 UNIT TAB PO SCH (08:36)
[2021-09-18] MEDS: PANTOPRAZOLE SOD 40 MG TABEC PO SCH (08:36)
[2021-09-18] MEDS: CEFTRIAXONE 1 GM in SODIUM CHLORIDE 0.9% 50ML 50 ML IV SCH (08:36)
[2021-09-18] MEDS: GABAPENTIN 300 MG CAP PO SCH ×2 (08:36→16:25)
[2021-09-18] MEDS: LOSARTAN POTASSIUM 100 MG TAB PO SCH (08:36)
[2021-09-18] MEDS ORDERED: AMLODIPINE BESYLATE 5 MG TAB PO SCH (09:00)
[2021-09-18] MEDS: SODIUM CHLORIDE 0.9% 1000ML 1,000 ML IV SCH (09:31)
[2021-09-18] MEDS ORDERED: XARELTO10 MG PO (14:17)
[2021-09-18] MEDS ORDERED: PREDNISONE20 MG PO (14:17)
[2021-09-18] MEDS ORDERED: ENOXAPARIN SOD INJ 40 MG/0.4 ML SYR SC SCH (17:00)
[2021-09-18] MEDS: TERAZOSIN HCL 1 MG CAP PO SCH (21:19)
[2021-09-19] MEDS: ALBUTEROL SULFATE HFA 8GM INHALATION AEROSOL INH SCH ×2 (00:35→06:00)
[2021-09-19 00:36] VITALS: BP 145/64
[2021-09-19 04:29] VITALS: BP 135/60
[2021-09-19] MEDS: GUAIFENESIN/DEXTROMETHORPHAN LIQD 5 ML UDC NG PRN (07:01)
[2021-09-19 08:49] VITALS: BP 142/75
[2021-09-19] MEDS ORDERED: AZITHROMYCIN 250 MG TAB PO SCH (09:00)
[2021-09-19] MEDS ORDERED: REMDESIVIR 100MG 200 MG in SODIUM CHLORIDE 0.9% 100 ML IV ONE ×2 (09:00→12:45)
[2021-09-19] MEDS ORDERED: AMLODIPINE BESYLATE 10 MG TAB PO SCH (09:00)
[2021-09-19 09:16] VITALS: BP 142/75
[2021-09-19] MEDS: DEXAMETHASONE SOD PHOS 10 MG/1 ML VIAL IV SCH (09:17)
[2021-09-19] MEDS: CEFTRIAXONE 1 GM in SODIUM CHLORIDE 0.9% 50ML 50 ML IV SCH (09:17)
[2021-09-19] MEDS: PANTOPRAZOLE SOD 40 MG TABEC PO SCH (09:18)
[2021-09-19] MEDS: GABAPENTIN 300 MG CAP PO SCH (09:18)
[2021-09-19] MEDS: LOSARTAN POTASSIUM 100 MG TAB PO SCH (09:18)
[2021-09-19] MEDS: CHOLECALCIFEROL 1,000 UNIT TAB PO SCH (09:18)
[2021-09-19] MEDS ORDERED: COMPACT COMPRE1 EACH NEB (14:04)
[2021-09-19 14:16] VITALS: BP 151/74
[2021-09-20] MEDS ORDERED: REMDESIVIR 100MG 100 MG in SODIUM CHLORIDE 0.9% 100 ML IV SCH (14:00)
== END 2021-09-19 15:38 | disposition home or self-care (01) | DRG 871 ==
LOC: FSED 12:50 → ERHOLD 15:15 → IMCU 19:04
PROVIDERS: ADMIT Internal Medicine; ATTEND Internal Medicine
PROC: 8E0ZXY6 Isolation (ICD-10-PCS; principal; 2021-09-17)
PROC: XW033E5 Introduction of Remdesivir Anti-infective into Peripheral Vein, Percutaneous Approach, New Technology Group 5 (ICD-10-PCS; 2021-09-19)
DX: A41.89 Other specified sepsis (principal); U07.1 COVID-19; J12.82 Pneumonia due to coronavirus disease 2019; J96.01 Acute respiratory failure with hypoxia; I50.32 Chronic diastolic (congestive) heart failure; I10 Essential (primary) hypertension; I11.0 Hypertensive heart disease with heart failure; Z86.718 Personal history of other venous thrombosis and embolism; Z79.01 Long term (current) use of anticoagulants; J45.909 Unspecified asthma, uncomplicated; Z85.46 Personal history of malignant neoplasm of prostate; Z90.79 Acquired absence of other genital organ(s); J44.9 Chronic obstructive pulmonary disease, unspecified; K21.9 Gastro-esophageal reflux disease without esophagitis; Z88.0 Allergy status to penicillin
CPT/HCPCS: 36415; 71046; 80048; 80053; 81003; 82553; 82948; 83880; 84484; 85025; 87070; 87205; 94640; 94799; 96374; 99251; 99284; J0248; J0456; J0690; J0696; J1100; J1650; J7030; J7050; U0002

== ENCOUNTER 2022-07-28 23:54 | Inpatient (IN) | payer MEDICARE ==
[~2022-07-28] VITALS: Ht 162.6 cm; Wt 69.9 kg
[~2022-07-28 23:54] MED LIST changes: +COMPACT COMPRE1 EACH NEB; +XARELTO10 MG PO
[2022-07-29] VITALS (7 sets, daily range): BP systolic 119–160; BP diastolic 60–83
[2022-07-29] MEDS ORDERED: SODIUM CHLORIDE 0.9% 1000ML 2,100 ML IV SCH (00:30)
[2022-07-29] MEDS ORDERED: Vancomycin IV 1 GM in SODIUM CHLORIDE 0.9% 250ML 250 ML IV SCH (00:30)
[2022-07-29] MEDS ORDERED: ALBUTEROL/IPRATROPIUM 3 ML NEB NEB ONE (00:30)
[2022-07-29] MEDS ORDERED: METHYLPREDNISOLONE SOD SUCC 125 MG/2ML VIAL IV ONE (00:30)
[2022-07-29] MEDS ORDERED: ACETAMINOPHEN 325 MG TAB PO ONE (00:45)
[2022-07-29] MEDS ORDERED: ACETAMINOPHEN 325 MG TAB ONE (00:51)
[2022-07-29] MEDS ORDERED: METHYLPREDNISOLONE SOD SUCC 125 MG/2ML VIAL ONE (00:51)
[2022-07-29] MEDS ORDERED: ALBUTEROL/IPRATROPIUM 3 ML NEB ONE (00:52)
[2022-07-29] MEDS ORDERED: SODIUM CHLORIDE 0.9% 1000ML 1,000 ML ONE (00:52)
[2022-07-29] MEDS ORDERED: CEFTRIAXONE 1 GM VIAL ONE (00:53)
[2022-07-29] MEDS ORDERED: Vancomycin IV 1 GM VIAL ONE (00:53)
[2022-07-29] MEDS ORDERED: SODIUM CHLORIDE 0.9% 250ML 250 ML ONE (00:53)
[2022-07-29] MEDS: CEFTRIAXONE 1 GM VIAL IV SCH ×2 (00:58→23:59)
[2022-07-29] MEDS ORDERED: SODIUM CHLORIDE 0.9% 1000ML 1,000 ML IV SCH (01:00)
[2022-07-29 01:08] LABS: BASOPHILS % 0.1 % (0.0-1.0); EOSINOPHILS % 0.3 % (0.0-6.0); HEMATOCRIT 38.3 % (38.2-49.6); LYMPHOCYTES # (AUTO) 0.3 (1.0-3.2); LYMPHOCYTES % 4.4 % (18.0-39.1); MEAN CORPUSCULAR HEMOGLOBIN 29.3 pg (28-32); MEAN CORPUSCULAR HGB CONC 31.3 g/dL (31-35); MEAN CORPUSCULAR VOLUME 93.4 fL (81-99); MONOCYTES # (AUTO) 0.6 (0.2-0.8); MONOCYTES % 7.1 % (4.4-11.3); NEUTROPHILS # (AUTO) 6.8 (2.1-6.9); NEUTROPHILS % 87.7 % (38.7-80.0); PLATELET COUNT 114 x10e3/uL (140-360); RED CELL DISTRIBUTION WIDTH 12.4 % (11.7-14.4)
[2022-07-29 01:21] LABS: ANION GAP 16.2 mmol/L (8-16); CALCIUM 8.7 mg/dL (8.4-10.2); CREATININE, SERUM 2.11 mg/dL (0.72-1.25); POTASSIUM 4.2 mmol/L (3.5-5.1)
[2022-07-29 01:46] LABS: ALBUMIN 3.4 g/dL (3.5-5.0)
[2022-07-29 02:11] LABS: CREATINE KINASE MB 2.7 ng/mL (0-5.0)
[2022-07-29 06:41] LABS: INR 1.3; PROTHROMBIN TIME 17.3 seconds (11.9-14.5)
[2022-07-29 06:42] LABS: PARTIAL THROMBOPLASTIN TIME 34.2 seconds (23.8-35.5)
[2022-07-29 10:32] LABS: BASOPHILS % 0.1 % (0.0-1.0); HEMATOCRIT 32.1 % (38.2-49.6); HEMOGLOBIN 10.6 g/dL (14.0-18.0); LYMPHOCYTES # (AUTO) 0.2 (1.0-3.2); LYMPHOCYTES % 2.8 % (18.0-39.1); MEAN CORPUSCULAR HEMOGLOBIN 29.9 pg (28-32); MEAN CORPUSCULAR VOLUME 90.4 fL (81-99); MONOCYTES # (AUTO) 0.4 (0.2-0.8); MONOCYTES % 5.2 % (4.4-11.3); NEUTROPHILS # (AUTO) 6.8 (2.1-6.9); NEUTROPHILS % 90.7 % (38.7-80.0); PLATELET COUNT 98 x10e3/uL (140-360); RED BLOOD COUNT 3.55 x10e6/uL (4.3-5.7); RED CELL DISTRIBUTION WIDTH 12.5 % (11.7-14.4)
[2022-07-29] MEDS: AMLODIPINE BESYLATE 5 MG TAB PO SCH (10:58)
[2022-07-29] MEDS: PANTOPRAZOLE SOD 40 MG TABEC PO SCH (10:59)
[2022-07-29] MEDS: SUCRALFATE 1 GM TAB PO SCH ×2 (11:00→16:37)
[2022-07-29] MEDS: ALBUTEROL/IPRATROPIUM 3 ML NEB NEB SCH ×2 (12:40→19:25)
[2022-07-29 12:46] LABS: ANION GAP 15.2 mmol/L (8-16); CALCIUM 7.8 mg/dL (8.4-10.2); CREATININE, SERUM 1.84 mg/dL (0.72-1.25); POTASSIUM 4.2 mmol/L (3.5-5.1)
[2022-07-29 14:28] LABS: CREATINE KINASE MB 4.5 ng/mL (0-5.0)
[2022-07-29] MEDS: GABAPENTIN 300 MG CAP PO SCH (16:37)
[2022-07-29] MEDS: TERAZOSIN HCL 1 MG CAP PO SCH (21:05)
[2022-07-30] VITALS (8 sets, daily range): BP systolic 111–134; BP diastolic 54–79
[2022-07-30] MEDS: ALBUTEROL/IPRATROPIUM 3 ML NEB NEB SCH ×5 (01:08→19:52)
[2022-07-30 05:34] LABS: HEMATOCRIT 32.6 % (38.2-49.6); HEMOGLOBIN 10.2 g/dL (14.0-18.0); LYMPHOCYTES # (AUTO) 0.3 (1.0-3.2); LYMPHOCYTES % 4.6 % (18.0-39.1); MEAN CORPUSCULAR HEMOGLOBIN 29.7 pg (28-32); MEAN CORPUSCULAR HGB CONC 31.3 g/dL (31-35); MEAN CORPUSCULAR VOLUME 94.8 fL (81-99); MONOCYTES # (AUTO) 0.4 (0.2-0.8); MONOCYTES % 6.2 % (4.4-11.3); NEUTROPHILS # (AUTO) 6.3 (2.1-6.9); NEUTROPHILS % 88.1 % (38.7-80.0); PLATELET COUNT 110 x10e3/uL (140-360); RED BLOOD COUNT 3.44 x10e6/uL (4.3-5.7); RED CELL DISTRIBUTION WIDTH 12.3 % (11.7-14.4)
[2022-07-30 05:59] LABS: ALBUMIN 2.8 g/dL (3.5-5.0); ANION GAP 11.4 mmol/L (8-16); CALCIUM 7.9 mg/dL (8.4-10.2); CREATININE, SERUM 1.83 mg/dL (0.72-1.25); POTASSIUM 4.4 mmol/L (3.5-5.1)
[2022-07-30 07:14] LABS: CREATINE KINASE MB 7.1 ng/mL (0-5.0)
[2022-07-30] MEDS: PANTOPRAZOLE SOD 40 MG TABEC PO SCH (08:56)
[2022-07-30] MEDS: GABAPENTIN 300 MG CAP PO SCH ×2 (08:56→16:07)
[2022-07-30] MEDS: AMLODIPINE BESYLATE 5 MG TAB PO SCH (08:57)
[2022-07-30] MEDS: SUCRALFATE 1 GM TAB PO SCH ×3 (08:57→16:07)
[2022-07-30] MEDS ORDERED: METHYLPREDNISOLONE SOD SUCC 125 MG/2ML VIAL IV ONE (12:00)
[2022-07-30 12:10] LABS: CLARITY,URINE CLEAR (CLEAR); COLOR,URINE YELLOW (YELLOW); KETONES,URINE NEGATIVE (NEGATIVE); LEUKOCYTE ESTERASE ,URINE NEGATIVE (NEGATIVE); NITRITE,URINE NEGATIVE (NEGATIVE); PROTEIN,URINE DIPSTICK NEGATIVE (NEGATIVE); URINE UROBILINOGEN 0.2 mg/dL (0.2 - 1)
[2022-07-30 12:23] LABS: BACTERIA,URINE MODERATE /HPF; EPITHELIAL CELLS,URINE FEW /LPF; WBC,URINE (MAN) 0-5 /HPF (0-5)
[2022-07-30] MEDS: TERAZOSIN HCL 1 MG CAP PO SCH (21:44)
[2022-07-31] VITALS (8 sets, daily range): BP systolic 114–160; BP diastolic 62–73
[2022-07-31] MEDS: CEFTRIAXONE 1 GM VIAL IV SCH (00:43)
[2022-07-31] MEDS: ALBUTEROL/IPRATROPIUM 3 ML NEB NEB SCH ×4 (01:02→20:05)
[2022-07-31] MEDS: AZITHROMYCIN 250 MG TAB PO SCH (12:41)
[2022-07-31] MEDS: SUCRALFATE 1 GM TAB PO SCH ×2 (12:41→18:04)
[2022-07-31] MEDS: GABAPENTIN 300 MG CAP PO SCH ×2 (12:41→18:04)
[2022-07-31] MEDS: PANTOPRAZOLE SOD 40 MG TABEC PO SCH (12:42)
[2022-07-31] MEDS: AMLODIPINE BESYLATE 5 MG TAB PO SCH (12:42)
[2022-07-31] MEDS ORDERED: GUAIFENESIN/DEXTROMETHORPHAN LIQD 5 ML UDC NG ONE (12:45)
[2022-07-31] MEDS: BENZONATATE 100 MG CAP PO PRN (18:42)
[2022-07-31] MEDS: TERAZOSIN HCL 1 MG CAP PO SCH (21:20)
[2022-08-01] VITALS (8 sets, daily range): BP systolic 121–173; BP diastolic 63–86
[2022-08-01] MEDS: ALBUTEROL/IPRATROPIUM 3 ML NEB NEB SCH ×4 (01:15→20:05)
[2022-08-01 06:17] LABS: BASOPHILS % 0.2 % (0.0-1.0); EOSINOPHILS % 0.2 % (0.0-6.0); HEMATOCRIT 30.4 % (38.2-49.6); HEMOGLOBIN 9.9 g/dL (14.0-18.0); LYMPHOCYTES # (AUTO) 0.7 (1.0-3.2); LYMPHOCYTES % 13.1 % (18.0-39.1); MEAN CORPUSCULAR HGB CONC 32.6 g/dL (31-35); MEAN CORPUSCULAR VOLUME 89.1 fL (81-99); MONOCYTES # (AUTO) 0.5 (0.2-0.8); MONOCYTES % 9.7 % (4.4-11.3); NEUTROPHILS % 75.5 % (38.7-80.0); PLATELET COUNT 119 x10e3/uL (140-360); RED BLOOD COUNT 3.41 x10e6/uL (4.3-5.7); RED CELL DISTRIBUTION WIDTH 12.9 % (11.7-14.4)
[2022-08-01] MEDS: AZITHROMYCIN 250 MG TAB PO SCH (06:20)
[2022-08-01 06:22] LABS: ALBUMIN/GLOBULIN RATIO 1.3 (0.8-2.0); ANION GAP 11.4 mmol/L (8-16); CALCIUM 8.1 mg/dL (8.4-10.2); CREATININE, SERUM 1.65 mg/dL (0.72-1.25); POTASSIUM 3.4 mmol/L (3.5-5.1)
[2022-08-01] MEDS: PANTOPRAZOLE SOD 40 MG TABEC PO SCH (09:04)
[2022-08-01] MEDS: SUCRALFATE 1 GM TAB PO SCH ×3 (09:04→16:58)
[2022-08-01] MEDS: AMLODIPINE BESYLATE 5 MG TAB PO SCH (09:05)
[2022-08-01] MEDS: GABAPENTIN 300 MG CAP PO SCH ×2 (09:05→16:58)
[2022-08-01] MEDS: BENZONATATE 100 MG CAP PO PRN ×2 (12:32→21:07)
[2022-08-01] MEDS: TERAZOSIN HCL 1 MG CAP PO SCH (21:07)
[2022-08-02 00:06] VITALS: BP 134/66
[2022-08-02] MEDS: ALBUTEROL/IPRATROPIUM 3 ML NEB NEB SCH ×3 (02:30→11:00)
[2022-08-02 05:46] VITALS: BP 141/73
[2022-08-02] MEDS: AZITHROMYCIN 250 MG TAB PO SCH (06:12)
[2022-08-02] MEDS: BENZONATATE 100 MG CAP PO PRN (06:16)
[2022-08-02 08:00] VITALS: BP_SYST 108; BP_SYST 152; BP_DIAS 73; BP_DIAS 80
[2022-08-02 08:35] VITALS: BP 152/73
[2022-08-02] MEDS: AMLODIPINE BESYLATE 5 MG TAB PO SCH (09:39)
[2022-08-02] MEDS: PANTOPRAZOLE SOD 40 MG TABEC PO SCH (09:40)
[2022-08-02] MEDS: GABAPENTIN 300 MG CAP PO SCH (09:40)
[2022-08-02] MEDS: SUCRALFATE 1 GM TAB PO SCH ×2 (09:40→11:30)
[2022-08-02] MEDS ORDERED: SINGULAIR10 MG PO (10:37)
[2022-08-02] MEDS ORDERED: PREDNISONE20 MG PO (10:39)
[2022-08-02 11:40] VITALS: BP 165/75
[2022-08-02 15:25] VITALS: BP 136/81
[2022-08-02] MEDS ORDERED: POTASSIUM CHLORIDE 20 MEQ TAB CR PO ONE (15:25)
== END 2022-08-02 16:30 | disposition home or self-care (01) | DRG 871 ==
LOC: FSED 07-29 00:28 → ERHOLD 07-29 00:56 → INTOOBSV 07-29 00:56 → MED/SURG2 07-29 03:31 → OBSVTOIN 07-31 10:29
PROVIDERS: ADMIT Internal Medicine; ATTEND Internal Medicine
DX: A41.9 Sepsis, unspecified organism (principal); J18.9 Pneumonia, unspecified organism; J96.20 Acute and chronic respiratory failure, unspecified whether with hypoxia or hypercapnia; N17.9 Acute kidney failure, unspecified; I13.0 Hypertensive heart and chronic kidney disease with heart failure and stage 1 through stage 4 chronic kidney disease, or unspecified chronic kidney disease; I50.32 Chronic diastolic (congestive) heart failure; J44.0 Chronic obstructive pulmonary disease with (acute) lower respiratory infection; N18.9 Chronic kidney disease, unspecified; K21.9 Gastro-esophageal reflux disease without esophagitis; Z86.718 Personal history of other venous thrombosis and embolism; Z86.711 Personal history of pulmonary embolism; Z90.49 Acquired absence of other specified parts of digestive tract; Z90.79 Acquired absence of other genital organ(s); Z88.5 Allergy status to narcotic agent; Z88.0 Allergy status to penicillin; Z87.891 Personal history of nicotine dependence; I16.0 Hypertensive urgency; D64.9 Anemia, unspecified; Z85.46 Personal history of malignant neoplasm of prostate; R04.0 Epistaxis
CPT/HCPCS: 36415; 71045; 71046; 80048; 80053; 81001; 82550; 82553; 83605; 83880; 84484; 85025; 85610; 85730; 87040; 87070; 87086; 87205; 87400; 94640; 94799; 96374; 99251; 99284; G0378; J0456; J0696; J2930; J3370; J7030; J7050

== ENCOUNTER 2023-07-30 16:02 | Emergency (ER) | payer MEDICARE ==
[~2023-07-30] VITALS: Ht 315 cm; Wt 69.9 kg
[~2023-07-30 16:02] MED LIST changes: +SINGULAIR10 MG PO
[2023-07-30] MEDS ORDERED: FAMOTIDINE 20 MG/2 ML VIAL IV STA (16:56)
[2023-07-30] MEDS ORDERED: SODIUM CHLORIDE 0.9% 1000ML 1,000 ML IV STA (16:56)
[2023-07-30] MEDS ORDERED: ONDANSETRON HCL INJ 2MG/ML 2ML 2 MG/ML VIAL IV STA (16:56)
[2023-07-30 17:02] LABS: BASOPHILS % 0.8 % (0.0-1.0); HEMATOCRIT 37.8 % (38.2-49.6); HEMOGLOBIN 12.4 g/dL (14.0-18.0); LYMPHOCYTES # (AUTO) 0.8 (1.0-3.2); MEAN CORPUSCULAR HGB CONC 32.8 g/dL (31-35); MEAN CORPUSCULAR VOLUME 88.3 fL (81-99); MONOCYTES # (AUTO) 0.5 (0.2-0.8); MONOCYTES % 12.2 % (4.4-11.3); NEUTROPHILS # (AUTO) 2.6 (2.1-6.9); NEUTROPHILS % 64.5 % (38.7-80.0); PLATELET COUNT 130 x10e3/uL (140-360); RED BLOOD COUNT 4.28 x10e6/uL (4.3-5.7); RED CELL DISTRIBUTION WIDTH 12.4 % (11.7-14.4); WHITE BLOOD COUNT 3.95 x10e3/uL (4.8-10.8)
[2023-07-30 17:32] LABS: ALBUMIN 3.9 g/dL (3.5-5.0); ALBUMIN/GLOBULIN RATIO 1.2 (0.8-2.0); ANION GAP 14.3 mmol/L (8-16); BILIRUBIN,TOTAL 0.6 mg/dL (0.2-1.2); CALCIUM 9.1 mg/dL (8.4-10.2); CREATININE, SERUM 1.8 mg/dL (0.72-1.25); POTASSIUM 4.3 mmol/L (3.5-5.1); TOTAL PROTEIN 7.2 g/dL (6.5-8.1)
[2023-07-30] MEDS ORDERED: IOPAMIDOL 370 MG/ML 100 ML INFUS..BTL INJ ONE (17:55)
[2023-07-30 20:20] VITALS: BP 155/73; PULSE 73; RESP 19; TEMP 98.5; O2SAT 96
[2023-07-30] MEDS ORDERED: PEPCID20 MG PO (20:25)
[2023-07-30] MEDS ORDERED: ULTRAM 50MG50 MG PO (20:25)
[2023-07-30] MEDS ORDERED: ONDANSETRON ODT4 MG PO (20:25)
== END 2023-07-30 20:28 | disposition home or self-care (01) ==
LOC: ER 16:30
DX: R10.13 Epigastric pain (principal); N28.9 Disorder of kidney and ureter, unspecified; D61.818 Other pancytopenia; I10 Essential (primary) hypertension; J44.9 Chronic obstructive pulmonary disease, unspecified; I50.9 Heart failure, unspecified; Z86.718 Personal history of other venous thrombosis and embolism; R94.31 Abnormal electrocardiogram [ECG] [EKG]
CPT/HCPCS: 36415; 74177; 80053; 83690; 85025; 93005; 99284; J2405; J7030; Q9967

== ENCOUNTER 2025-01-03 20:16 | Inpatient (IN) | payer MEDICARE ==
[~2025-01-03] VITALS: Ht 165.1 cm; Wt 64.9 kg
[~2025-01-03 20:16] MED LIST changes: +BENZONATATE100 MG PO; +BUMETANIDE1 MG PO; +FAMOTIDINE40 MG PO; +METHYLPREDNISOLO4 M1 PO; +ONDANSETRON ODT4 MG PO; +PEPCID20 MG PO; +PREDNISONE10 MG PO; +SYMBICORT 16010.2 GM INH; +ULTRAM 50MG50 MG PO
[2025-01-03 20:24] VITALS: TEMP 98.8
[2025-01-03 21:02] LABS: BASOPHILS % 0.2 % (0.0-1.0); EOSINOPHILS % 0.4 % (0.0-6.0); HEMATOCRIT 32.9 % (38.2-49.6); HEMOGLOBIN 10.8 g/dL (14.0-18.0); LYMPHOCYTES # (AUTO) 0.7 (1.0-3.2); LYMPHOCYTES % 7.5 % (18.0-39.1); MEAN CORPUSCULAR HEMOGLOBIN 28.6 pg (28-32); MEAN CORPUSCULAR HGB CONC 32.8 g/dL (31-35); MEAN CORPUSCULAR VOLUME 87.3 fL (81-99); MONOCYTES # (AUTO) 0.7 (0.2-0.8); MONOCYTES % 7.7 % (4.4-11.3); NEUTROPHILS # (AUTO) 7.6 (2.1-6.9); NEUTROPHILS % 83.9 % (38.7-80.0); PLATELET COUNT 136 x10e3/uL (140-360); RED BLOOD COUNT 3.77 x10e6/uL (4.3-5.7); RED CELL DISTRIBUTION WIDTH 13.1 % (11.7-14.4)
[2025-01-03] MEDS: METHYLPREDNISOLONE SOD SUCC 125 MG/2ML VIAL IV ONE (21:06)
[2025-01-03 21:08] LABS: INR 1.18; PROTHROMBIN TIME 15.7 seconds (11.9-14.5)
[2025-01-03 21:09] LABS: PARTIAL THROMBOPLASTIN TIME 32.3 seconds (23.8-35.5)
[2025-01-03 21:16] LABS: ALBUMIN 3.4 g/dL (3.5-5.0); ALBUMIN/GLOBULIN RATIO 1.1 (0.8-2.0); ANION GAP 17.2 mmol/L (8-16); BILIRUBIN,TOTAL 0.5 mg/dL (0.2-1.2); CALCIUM 8.6 mg/dL (8.4-10.2); CREATININE, SERUM 2.67 mg/dL (0.72-1.25); TOTAL PROTEIN 6.4 g/dL (6.5-8.1)
[2025-01-03 21:19] LABS: POTASSIUM 5.2 mmol/L (3.5-5.1)
[2025-01-03 21:22] LABS: TROPONIN I 0.014 ng/mL (0-0.300)
[2025-01-03 21:26] LABS: CORONAVIRUS COVID-19 AG NEGATIVE (NEGATIVE); INFLUENZA A AG NEGATIVE (NEGATIVE); INFLUENZA B AG NEGATIVE (NEGATIVE)
[2025-01-03 21:30] VITALS: PULSE 92; RESP 20; O2SAT 97
[2025-01-03] MEDS: ALBUTEROL SULF 0.083% NEB SOLN 3 ML NEB NEB STA (21:32)
[2025-01-03] MEDS: IPRATROPIUM BROMIDE 0.02% 2.5 ML NEB NEB ONE (21:34)
[2025-01-03] MEDS: SODIUM CHLORIDE 0.9% 1000ML 1,000 ML IV ONE (23:43)
[2025-01-03 23:47] VITALS: PULSE 84; RESP 16
[2025-01-03 23:50] VITALS: BP 113/53; PULSE 81; RESP 20; TEMP 97.7; O2SAT 95
[2025-01-04] VITALS (11 sets, daily range): BP systolic 107–144; BP diastolic 55–69; PULSE 72–112; RESP 14–20; TEMP 97.7–98.6; O2SAT 93–97
[2025-01-04] MEDS: METHYLPREDNISOLONE SOD SUCC 40 MG/ML VIAL 1ML IV SCH (03:00)
[2025-01-04] MEDS: ALBUTEROL/IPRATROPIUM 3 ML NEB NEB SCH (03:20)
[2025-01-04] MEDS: SODIUM CHLORIDE 0.9% 1000ML 1,000 ML IV SCH (05:34)
[2025-01-04 05:48] LABS: HEMATOCRIT 31.2 % (38.2-49.6); HEMOGLOBIN 10.3 g/dL (14.0-18.0); LYMPHOCYTES # (AUTO) 0.2 (1.0-3.2); LYMPHOCYTES % 2.8 % (18.0-39.1); MEAN CORPUSCULAR HEMOGLOBIN 28.6 pg (28-32); MEAN CORPUSCULAR VOLUME 86.7 fL (81-99); MONOCYTES # (AUTO) 0.1 (0.2-0.8); NEUTROPHILS # (AUTO) 7.4 (2.1-6.9); NEUTROPHILS % 95.8 % (38.7-80.0); PLATELET COUNT 125 x10e3/uL (140-360); RED CELL DISTRIBUTION WIDTH 12.9 % (11.7-14.4); WHITE BLOOD COUNT 7.72 x10e3/uL (4.8-10.8)
[2025-01-04 06:13] LABS: ANION GAP 14.4 mmol/L (8-16); CALCIUM 8.3 mg/dL (8.4-10.2); CREATININE, SERUM 2.41 mg/dL (0.72-1.25)
[2025-01-04 06:15] LABS: POTASSIUM 5.4 mmol/L (3.5-5.1)
[2025-01-04 06:49] LABS: TROPONIN I 0.018 ng/mL (0-0.300)
[2025-01-04 15:12] LABS: TROPONIN I 0.013 ng/mL (0-0.300)
[2025-01-05] VITALS (11 sets, daily range): BP systolic 130–155; BP diastolic 58–70; PULSE 74–105; RESP 18–20; TEMP 97.6–98.2; O2SAT 95–100
[2025-01-05 05:56] LABS: BASOPHILS % 0.1 % (0.0-1.0); HEMATOCRIT 30.2 % (38.2-49.6); HEMOGLOBIN 9.8 g/dL (14.0-18.0); LYMPHOCYTES # (AUTO) 0.3 (1.0-3.2); LYMPHOCYTES % 2.7 % (18.0-39.1); MEAN CORPUSCULAR HEMOGLOBIN 28.7 pg (28-32); MEAN CORPUSCULAR HGB CONC 32.5 g/dL (31-35); MEAN CORPUSCULAR VOLUME 88.6 fL (81-99); MONOCYTES # (AUTO) 0.2 (0.2-0.8); MONOCYTES % 2.4 % (4.4-11.3); NEUTROPHILS # (AUTO) 8.9 (2.1-6.9); NEUTROPHILS % 94.2 % (38.7-80.0); PLATELET COUNT 127 x10e3/uL (140-360); RED BLOOD COUNT 3.41 x10e6/uL (4.3-5.7); RED CELL DISTRIBUTION WIDTH 13.2 % (11.7-14.4); WHITE BLOOD COUNT 9.48 x10e3/uL (4.8-10.8)
[2025-01-05 06:30] LABS: ANION GAP 13.8 mmol/L (8-16); CALCIUM 8.1 mg/dL (8.4-10.2); CREATININE, SERUM 2.02 mg/dL (0.72-1.25); POTASSIUM 4.8 mmol/L (3.5-5.1)
[2025-01-05] MEDS: TRAZODONE HCL 50 MG TAB PO PRN (21:04)
[2025-01-05] MEDS: BENZONATATE 100 MG CAP PO PRN (21:04)
[2025-01-06] VITALS (12 sets, daily range): BP systolic 136–161; BP diastolic 55–84; PULSE 74–96; RESP 15–25; TEMP 97.6–98.8; O2SAT 95–100
[2025-01-06 05:46] LABS: HEMATOCRIT 28.8 % (38.2-49.6); HEMOGLOBIN 9.4 g/dL (14.0-18.0); LYMPHOCYTES # (AUTO) 0.2 (1.0-3.2); LYMPHOCYTES % 2.9 % (18.0-39.1); MEAN CORPUSCULAR HEMOGLOBIN 28.7 pg (28-32); MEAN CORPUSCULAR HGB CONC 32.6 g/dL (31-35); MEAN CORPUSCULAR VOLUME 88.1 fL (81-99); MONOCYTES # (AUTO) 0.2 (0.2-0.8); MONOCYTES % 2.9 % (4.4-11.3); NEUTROPHILS # (AUTO) 7.1 (2.1-6.9); PLATELET COUNT 124 x10e3/uL (140-360); RED BLOOD COUNT 3.27 x10e6/uL (4.3-5.7); RED CELL DISTRIBUTION WIDTH 13.6 % (11.7-14.4); WHITE BLOOD COUNT 7.63 x10e3/uL (4.8-10.8)
[2025-01-06 06:16] LABS: ALBUMIN 2.9 g/dL (3.5-5.0); ALBUMIN/GLOBULIN RATIO 1.3 (0.8-2.0); ANION GAP 12.3 mmol/L (8-16); BILIRUBIN,TOTAL 0.2 mg/dL (0.2-1.2); CALCIUM 7.6 mg/dL (8.4-10.2); CREATININE, SERUM 1.71 mg/dL (0.72-1.25); POTASSIUM 4.3 mmol/L (3.5-5.1); TOTAL PROTEIN 5.2 g/dL (6.5-8.1)
[2025-01-06] MEDS ORDERED: Vancomycin IV 1 GM in SODIUM CHLORIDE 0.9% 250ML 250 ML IV SCH (12:15)
[2025-01-06] MEDS: SODIUM BICARBONATE 8.4% VIAL 50 ML in SODIUM CHLORIDE 0.45% 1,000 ML IV ONE (15:55)
[2025-01-06] MEDS: TERAZOSIN HCL 1 MG CAP PO SCH (17:30)
[2025-01-06] MEDS: METHYLPREDNISOLONE SOD SUCC 40 MG/ML VIAL 1ML IV SCH (20:58)
[2025-01-06] MEDS: BUDESONIDE/FORMOTEROL 160/4.5MCG INHALER INH SCH (21:20)
[2025-01-07] VITALS (7 sets, daily range): BP systolic 154–163; BP diastolic 68–74; PULSE 76–101; RESP 17–20; TEMP 97.4–98; O2SAT 95–100
[2025-01-07 06:22] LABS: ANION GAP 12.3 mmol/L (8-16); CALCIUM 7.2 mg/dL (8.4-10.2); CREATININE, SERUM 1.59 mg/dL (0.72-1.25); POTASSIUM 4.3 mmol/L (3.5-5.1)
[2025-01-07] MEDS: MONTELUKAST SODIUM 10 MG TAB PO SCH (08:39)
[2025-01-07] MEDS ORDERED: Albuterol/Ipratropium Nebulize NEB (11:28)
[2025-01-07] MEDS ORDERED: AMLODIPINE BESYL5 MG PO (11:29)
== END 2025-01-07 13:00 | disposition home or self-care (01) | DRG 191 ==
LOC: ER 20:39 → ERHOLD 23:14 → MED/SURG2 23:52 → OBSVTOIN 01-05 14:40
PROVIDERS: ADMIT Internal Medicine; ATTEND Internal Medicine
DX: J44.1 Chronic obstructive pulmonary disease with (acute) exacerbation (principal); E87.1 Hypo-osmolality and hyponatremia; E87.20 Acidosis, unspecified; N17.9 Acute kidney failure, unspecified; D69.6 Thrombocytopenia, unspecified; E88.09 Other disorders of plasma-protein metabolism, not elsewhere classified; E87.5 Hyperkalemia; I12.9 Hypertensive chronic kidney disease with stage 1 through stage 4 chronic kidney disease, or unspecified chronic kidney disease; N18.30 Chronic kidney disease, stage 3 unspecified; D64.9 Anemia, unspecified; I45.10 Unspecified right bundle-branch block; R00.0 Tachycardia, unspecified; E78.5 Hyperlipidemia, unspecified; Z87.891 Personal history of nicotine dependence; Z86.711 Personal history of pulmonary embolism; Z86.718 Personal history of other venous thrombosis and embolism; Z85.46 Personal history of malignant neoplasm of prostate; Z90.79 Acquired absence of other genital organ(s); Z90.49 Acquired absence of other specified parts of digestive tract; Z79.52 Long term (current) use of systemic steroids; Z79.899 Other long term (current) drug therapy
CPT/HCPCS: 36415; 71045; 80048; 80053; 82550; 83605; 83880; 84484; 85025; 85610; 85730; 87040; 93005; 94664; 94799; 99284; G0378; J0696; J2919; J7030